=== PATIENT | male | born 1940 | race Native Hawaiian/Other Pacific Islander ===

== ENCOUNTER 2017-01-23 16:49 | Emergency (ER) | payer OTHER ==
[~2017-01-23] VITALS: Ht 167.6 cm; Wt 59.9 kg
[~2017-01-23 16:49] MED LIST: AMBIEN5 MG OR; CARB25TA29 PO; CRESTOR10 MG OR; GALANTAMINE8 MG OR; ISOS60TA6 PO; LISINOPRIL20 MG OR; METOPROL TAR50 MG PO; NITROSTAT0.4 MG; NITROSTAT0.4 MG SL; OMEPRAZOLE20 M2 OR
[2017-01-23 17:10] VITALS: BP 109/51; TEMP 98.7
[2017-01-23] MEDS ORDERED: CLOP75TA2 PO (17:17)
== END 2017-01-23 18:20 | disposition home or self-care (01) ==
LOC: ED 16:49
PROC: 0HQNXZZ Repair Left Foot Skin, External Approach (ICD-10-PCS; principal; 2017-01-23)
DX: S91.115A Laceration without foreign body of left lesser toe(s) without damage to nail, initial encounter (principal); S90.32XA Contusion of left foot, initial encounter; W22.8XXA Striking against or struck by other objects, initial encounter; Y92.098 Other place in other non-institutional residence as the place of occurrence of the external cause
CPT/HCPCS: 90715; 99282

== ENCOUNTER 2017-10-11 03:45 | Outpatient (CLI) | payer OTHER ==
[~2017-10-11 03:45] MED LIST changes: +CLOP75TA2 PO
[2017-10-11] MEDS ORDERED: REMERON SOLTAB30 MG PO (05:31)
[2017-10-11] MEDS ORDERED: ACID REDUCER150 M1 PO (05:31)
[2017-10-11] MEDS ORDERED: SERT100T PO (05:32)
[2017-10-11] MEDS ORDERED: PRINIVIL5 MG PO (05:32)
[2017-10-11] MEDS ORDERED: MIRAPEX1 MG PO (05:33)
[2017-10-11] MEDS ORDERED: RIVASTIGMI9.5 MG/24 TD (05:34)
== END 2017-10-11 03:59 | disposition short-term general hospital (02) ==
LOC: AMB 03:45
DX: R41.82 Altered mental status, unspecified (principal)
CPT/HCPCS: A0425; A0427

== ENCOUNTER 2017-10-11 04:01 | Inpatient (IN) | payer OTHER ==
[~2017-10-11] VITALS: Ht 167.6 cm; Wt 61.9 kg
[2017-10-11] VITALS (8 sets, daily range): BP systolic 90–123; BP diastolic 37–63; TEMP 96.5–102; Ht 167.6 cm; Wt 61.9 kg
[2017-10-11 05:02] LABS: PLATELET COUNT 87 K/uL (142-355)
[2017-10-11 05:05] LABS: POTASSIUM 5.8 mmol/L (3.6-5.2)
[2017-10-11 05:24] LABS: PARTIAL THROMBOPLASTIN TIME 22.3 SECONDS (24.5-33.6)
[2017-10-11] MEDS ORDERED: ACID REDUCER150 M1 PO (05:31)
[2017-10-11] MEDS ORDERED: REMERON SOLTAB30 MG PO (05:31)
[2017-10-11] MEDS ORDERED: SERT100T PO (05:32)
[2017-10-11] MEDS ORDERED: PRINIVIL5 MG PO (05:32)
[2017-10-11] MEDS ORDERED: MIRAPEX1 MG PO (05:33)
[2017-10-11] MEDS ORDERED: RIVASTIGMI9.5 MG/24 TD (05:34)
[2017-10-11 13:23] LABS: POTASSIUM 4.9 mmol/L (3.6-5.2)
[2017-10-11 13:33] LABS: PLATELET COUNT 61 K/uL (142-355)
[2017-10-12] VITALS: BP 115/42; TEMP 97.5
[2017-10-12 04:00] VITALS: BP 116/69; TEMP 97.8
[2017-10-12 06:13] LABS: PLATELET COUNT 57 K/uL (142-355)
[2017-10-12 08:00] VITALS: BP 122/44; TEMP 96.2
[2017-10-12 12:00] VITALS: BP 111/40; TEMP 97.6
[2017-10-12 16:00] VITALS: BP 110/48; TEMP 98
[2017-10-12 20:00] VITALS: BP 92/53; TEMP 98.3
[2017-10-13] VITALS: BP 130/52; TEMP 97.6
[2017-10-13 04:00] VITALS: BP 136/69; TEMP 98.3
[2017-10-13 08:00] VITALS: BP 125/48; TEMP 97.8
[2017-10-13 12:00] VITALS: BP 146/68; TEMP 101.5
[2017-10-13 16:00] VITALS: BP 96/49; TEMP 99.6
[2017-10-13 20:00] VITALS: BP 104/58; TEMP 97.6
[2017-10-14] VITALS: BP 104/58; TEMP 97.6
[2017-10-14 04:00] VITALS: BP 102/49; TEMP 98.2
[2017-10-14 05:51] LABS: PLATELET COUNT 66 K/uL (142-355)
[2017-10-14 06:18] LABS: POTASSIUM 4.3 mmol/L (3.6-5.2)
[2017-10-14 08:00] VITALS: BP 120/57; TEMP 97.7
[2017-10-14 12:00] VITALS: BP 116/53; TEMP 98.1
[2017-10-14 15:54] VITALS: BP 124/87; TEMP 98.9
[2017-10-14 20:00] VITALS: BP 124/55; TEMP 100.9
[2017-10-15] VITALS: BP 115/67; TEMP 98.1
[2017-10-15 04:00] VITALS: BP 113/58; TEMP 98.6
[2017-10-15 04:48] LABS: PLATELET COUNT 74 K/uL (142-355)
[2017-10-15 05:06] LABS: POTASSIUM 4.2 mmol/L (3.6-5.2)
[2017-10-15 08:00] VITALS: BP 115/54; TEMP 99.4
[2017-10-15 12:00] VITALS: BP 113/55; TEMP 101.3
[2017-10-15 16:00] VITALS: BP 84/48; TEMP 97.5
[2017-10-15 20:00] VITALS: BP 104/62; TEMP 97.8
[2017-10-16] VITALS: BP 124/68; TEMP 97.6
[2017-10-16 04:00] VITALS: BP 107/50; TEMP 97.9
[2017-10-16 07:01] LABS: PLATELET COUNT 77 K/uL (142-355)
[2017-10-16 07:03] LABS: POTASSIUM 3.9 mmol/L (3.6-5.2)
[2017-10-16 08:00] VITALS: BP 103/53; TEMP 99.2
[2017-10-16 12:00] VITALS: BP 99/47; TEMP 99.1
[2017-10-16 16:00] VITALS: BP 89/39; TEMP 98.9
[2017-10-16 20:00] VITALS: BP 109/55; TEMP 97.8
[2017-10-17] VITALS: BP 96/60; TEMP 98.7
[2017-10-17 04:00] VITALS: BP 96/65; TEMP 99.1
[2017-10-17 06:38] LABS: PLATELET COUNT 92 K/uL (142-355)
[2017-10-17 06:56] LABS: POTASSIUM 3.6 mmol/L (3.6-5.2)
[2017-10-17 08:22] VITALS: BP 96/51; TEMP 98.2
[2017-10-17 12:00] VITALS: BP 98/53; TEMP 100.1
[2017-10-17 16:00] VITALS: BP 107/64; TEMP 97.8
[2017-10-17 20:00] VITALS: BP 122/58; TEMP 99.7
[2017-10-18] VITALS: BP 128/62; TEMP 99.7
[2017-10-18 04:00] VITALS: BP 125/67; TEMP 99.6
[2017-10-18 05:04] LABS: PLATELET COUNT 123 K/uL (142-355)
[2017-10-18 05:26] LABS: POTASSIUM 4.2 mmol/L (3.6-5.2)
[2017-10-18 08:00] VITALS: BP 111/62; TEMP 99.3
[2017-10-18 12:00] VITALS: BP 99/56; TEMP 97.7
[2017-10-18 16:00] VITALS: BP 104/54; TEMP 97
[2017-10-18 20:00] VITALS: BP 153/74; TEMP 97.9
[2017-10-19] VITALS: BP 98/61; TEMP 98.3
[2017-10-19 04:00] VITALS: BP 98/61; TEMP 98.3
[2017-10-19 06:16] LABS: PLATELET COUNT 162 K/uL (142-355)
[2017-10-19 06:31] LABS: POTASSIUM 4.1 mmol/L (3.6-5.2)
[2017-10-19 08:24] VITALS: BP 100/62; TEMP 98.7
[2017-10-19 11:49] VITALS: BP 94/51; TEMP 98.9
[2017-10-19 16:00] VITALS: BP 96/55; TEMP 99.9
[2017-10-19 20:00] VITALS: BP 105/52; TEMP 100.1
[2017-10-20] VITALS: BP 109/50; TEMP 97.5
[2017-10-20 04:00] VITALS: BP 112/56; TEMP 97.7
[2017-10-20 06:04] LABS: POTASSIUM 3.3 mmol/L (3.6-5.2)
[2017-10-20 08:00] VITALS: BP 107/51; TEMP 97.8
[2017-10-20 12:00] VITALS: BP 98/57; TEMP 99.3
[2017-10-20 16:00] VITALS: BP 94/54; TEMP 98.5
[2017-10-20 20:00] VITALS: BP 95/54; TEMP 99.5
[2017-10-21] VITALS: BP 97/53; TEMP 100.3
[2017-10-21 04:00] VITALS: BP 99/55; TEMP 99
[2017-10-21 05:14] LABS: PLATELET COUNT 236 K/uL (142-355)
[2017-10-21 05:31] LABS: POTASSIUM 3.7 mmol/L (3.6-5.2)
[2017-10-21 08:00] VITALS: BP 90/52; TEMP 98.8
[2017-10-21 12:00] VITALS: BP 98/54; TEMP 98.6
[2017-10-21 16:00] VITALS: BP 102/60; TEMP 99
[2017-10-21 20:00] VITALS: BP 97/51; TEMP 99.2
[2017-10-22] VITALS: BP 100/51; TEMP 96.5
[2017-10-22 04:00] VITALS: BP 96/49; TEMP 98.7
[2017-10-22 06:05] LABS: POTASSIUM 3.5 mmol/L (3.6-5.2)
[2017-10-22 06:13] LABS: PLATELET COUNT 204 K/uL (142-355)
[2017-10-22 08:00] VITALS: BP 89/46; TEMP 97.9
[2017-10-22 12:00] VITALS: BP 88/46; TEMP 97.3
[2017-10-22 16:00] VITALS: BP 104/57; TEMP 97
[2017-10-22 20:00] VITALS: BP 94/52; TEMP 98.6
[2017-10-23] VITALS: BP 94/58; TEMP 97.3
[2017-10-23 04:00] VITALS: BP 101/52; TEMP 96
[2017-10-23 06:11] LABS: POTASSIUM 3.3 mmol/L (3.6-5.2)
[2017-10-23 06:34] LABS: PLATELET COUNT 188 K/uL (142-355)
[2017-10-23 08:00] VITALS: BP 152/60; TEMP 97.1
[2017-10-23 12:00] VITALS: BP 99/52; TEMP 97.8
[2017-10-23 16:00] VITALS: BP 101/47; TEMP 97.8
[2017-10-23 20:00] VITALS: BP 99/45; TEMP 97.4
[2017-10-24] VITALS: BP 102/45; TEMP 96.6
[2017-10-24 04:10] VITALS: BP 106/46; TEMP 97.6
[2017-10-24 06:44] LABS: PLATELET COUNT 197 K/uL (142-355)
[2017-10-24 07:00] LABS: POTASSIUM 3.1 mmol/L (3.6-5.2)
[2017-10-24 08:00] VITALS: BP 104/54; TEMP 98.1
[2017-10-24 11:48] VITALS: BP 105/47; TEMP 97
[2017-10-24 16:00] VITALS: BP 114/54; TEMP 97.6
[2017-10-24 20:00] VITALS: BP 112/52; TEMP 97.5
[2017-10-25] VITALS: BP 106/53; TEMP 98.1
[2017-10-25 04:00] VITALS: TEMP 97.9
[2017-10-25 07:04] LABS: POTASSIUM 2.8 mmol/L (3.6-5.2)
[2017-10-25 07:08] LABS: PLATELET COUNT 205 K/uL (142-355)
[2017-10-25 08:00] VITALS: BP 99/48; TEMP 98
[2017-10-25 12:00] VITALS: BP 101/45; TEMP 97.9
[2017-10-25 16:00] VITALS: BP 98/52; TEMP 98.8
[2017-10-25 20:00] VITALS: BP 100/49; TEMP 97.9
[2017-10-26] VITALS: BP 103/47; TEMP 97.7
[2017-10-26 04:00] VITALS: BP 108/47; TEMP 97.4
[2017-10-26 05:46] LABS: PLATELET COUNT 193 K/uL (142-355)
[2017-10-26 05:57] LABS: POTASSIUM 2.7 mmol/L (3.6-5.2)
[2017-10-26 08:00] VITALS: BP 101/56; TEMP 97.9
[2017-10-26 12:00] VITALS: BP 85/41; TEMP 97.9
[2017-10-26 16:00] VITALS: BP 100/40; TEMP 98.3
[2017-10-26 20:00] VITALS: BP 111/36; TEMP 98.4
[2017-10-27] VITALS: BP 106/48; TEMP 98.1
[2017-10-27 04:00] VITALS: BP 90/43; TEMP 97.1
[2017-10-27 05:12] LABS: PLATELET COUNT 201 K/uL (142-355)
[2017-10-27 06:17] LABS: POTASSIUM 2.7 mmol/L (3.6-5.2)
[2017-10-27 07:59] VITALS: BP 102/43; TEMP 98.1
[2017-10-27 12:00] VITALS: BP 109/44; TEMP 97.4
[2017-10-27 15:50] VITALS: BP 108/41; TEMP 98.4
== END 2017-10-27 20:35 | disposition short-term general hospital (02) | DRG 56 ==
LOC: ED 04:01 → MED/SURG 06:55
PROVIDERS: Emergency Medicine; Family Medicine; Specialist
PROC: 0DH67UZ Insertion of Feeding Device into Stomach, Via Natural or Artificial Opening (ICD-10-PCS; principal; 2017-10-21)
PROC: 3E0G76Z Introduction of Nutritional Substance into Upper GI, Via Natural or Artificial Opening (ICD-10-PCS; 2017-10-21)
DX: G20 Parkinson's disease (principal); J69.0 Pneumonitis due to inhalation of food and vomit; N39.0 Urinary tract infection, site not specified; F02.81 Dementia in other diseases classified elsewhere, unspecified severity, with behavioral disturbance; R41.82 Altered mental status, unspecified; E86.0 Dehydration; T17.228A Food in pharynx causing other injury, initial encounter; X58.XXXA Exposure to other specified factors, initial encounter; Y93.89 Activity, other specified; Y92.89 Other specified places as the place of occurrence of the external cause; D53.9 Nutritional anemia, unspecified; R94.4 Abnormal results of kidney function studies; E88.09 Other disorders of plasma-protein metabolism, not elsewhere classified; I71.4 Abdominal aortic aneurysm, without rupture
CPT/HCPCS: 36415; 36600; 74022; 80048; 80053; 80202; 80307; 81000; 82570; 82805; 82948; 83605; 83735; 83880; 84300; 84540; 85027; 85379; 85610; 85651; 85730; 86039; 87040; 87070; 87077; 87086; 87088; 87186; 87205; 93306; 94640; 94664; 94760; 96365; 96366; 96367; 96372; 96374; 96375; G0479; J1450; J1650; J1885; J1940; J1956; J2060; J2270; J2310; J2920; J2930; J3370; J3480; J3486; J3490; P9047; Q9963

== ENCOUNTER 2017-10-27 20:52 | Outpatient (CLI) | payer OTHER ==
[~2017-10-27 20:52] MED LIST changes: +ACID REDUCER150 M1 PO; +MIRAPEX1 MG PO; +PRINIVIL5 MG PO; +REMERON SOLTAB30 MG PO; +RIVASTIGMI9.5 MG/24 TD; +SERT100T PO
== END 2017-10-28 01:38 | disposition short-term general hospital (02) ==
LOC: AMB 20:52
DX: G20 Parkinson's disease (principal); J69.0 Pneumonitis due to inhalation of food and vomit; F02.81 Dementia in other diseases classified elsewhere, unspecified severity, with behavioral disturbance; E86.0 Dehydration; T17.228A Food in pharynx causing other injury, initial encounter; R94.4 Abnormal results of kidney function studies; E88.09 Other disorders of plasma-protein metabolism, not elsewhere classified; I71.4 Abdominal aortic aneurysm, without rupture; R40.4 Transient alteration of awareness
CPT/HCPCS: A0425; A0427